=== PATIENT | male | born 1995 | race Caucasian/White ===

== ENCOUNTER 2016-12-19 17:47 | Inpatient (IN) ==
[2016-12-19 18:07] LABS: Basophils # 0.1 K/mcL (0.0-0.2); Basophils % 0.4 %; Eosinophils # 0.2 K/mcL (0.0-0.6); Eosinophils % 1.4 %; Hematocrit 46.3 % (37.5-50.1); Hemoglobin 15.6 g/dL (12.9-16.9); Immature Granulocytes % 0.4 % (0-4); Lymphocytes # 4.9 K/mcL (0.6-4.6); Lymphocytes % 35.1 %; Mean Corpuscular HGB Conc 33.7 g/dL (31.6-35.5); Mean Corpuscular Hemoglobin 29.5 pg (28.0-33.3); Mean Corpuscular Volume 87.5 fL (83.0-100.0); Mean Platelet Volume 10.6 fL (9.4-12.4); Monocytes # 0.7 K/mcL (0.0-1.3); Neutrophils # 8.1 K/mcL (1.6-8.9); Platelet Count 299 K/mcL (140-400); Red Blood Count 5.29 M/mcL (4.19-5.50); Red Cell Distribution Width 12.8 % (11.5-14.5); Segmented Neutrophils % 57.7 %
[2016-12-19 18:22] LABS: Acetaminophen < 1.0 mcg/mL (10-30); Alanine Aminotransferase 16 Units/L (0-55); Albumin/Globulin Ratio 1.2 (1.1-2.2); Alkaline Phosphatase 79 Units/L (38-126); Aspartate Amino Transferase 13 Units/L (5-34); BUN/Creatinine Ratio 10 (6-26); Bilirubin,Total 0.4 mg/dL (0.2-1.2); Blood Urea Nitrogen 10 mg/dL (8-26); Calcium 9.1 mg/dL (8.6-10.8); Carbon Dioxide 16 mEq/L (19-29); Chloride 107 mEq/L (98-109); Globulin 3.3 g/dL (2.4-3.5); Glucose 105 mg/dL (70-99); Magnesium 1.8 mg/dL (1.7-2.2); Osmolality,Calculated 285 (280-300); Phosphorous 1.2 mg/dL (2.3-4.7); Sodium 138 mEq/L (136-145); Total Protein 7.3 g/dL (6.0-8.3); eGFR For African Americans > 60 (> 60); eGFR For Non-African Americans > 60 (> 60)
[2016-12-19] MEDS ORDERED: *HR* LORazepam 2 MG/ML VIAL IVP ONE (18:28)
[2016-12-19 18:33] LABS: Bilirubin,Urine Negative (Negative); Blood,Urine Negative (Negative); Clarity,Urine Clear (Clear); Color,Urine Yellow (Yellow); Glucose,Urine (UA) Normal (Normal); Ketones,Urine Negative (Negative); Leukocyte Esterase,Urine Trace (Negative); Nitrite,Urine Negative (Negative); Protein,Urine Negative (Neg-Trace); Specific Gravity,Urine 1.026 (1.010-1.025); Urobilinogen,Urine Normal (Normal)
--- NOTE | 2016-12-19 18:33 | Emergency Department Note ---
Disposition Clinical Impression: Seizure Anaphylactic reaction Qualifiers: Encounter type: initial encounter Qualified Code(s): T78.2XXA - Anaphylactic shock, unspecified, initial encounter Bee sting Qualifiers: Encounter type: initial encounter Injury intent: accidental or unintentional Qualified Code(s): T63.441A - Toxic effect of venom of bees, accidental ( unintentional), initial encounter Disposition: Admitted As Inpatient Condition: Good Referrals: NONE,PCP [Primary Care Provider] - Forms: ED Satisfaction Letter Time of Disposition: 21:09 Allergic Reaction HPI - General Chief complaint: ED Allergic Reaction Stated complaint: Allergic Reaction / Seizure Time Seen by Provider: 12/19/16 17:58 Source: EMS, other Mode of arrival: EMS Limitations: altered mental status, other Nursing Notes Reviewed: Yes Vital Signs Reviewed: Yes - History of Present Illness HPI Narrative: Patient is a 21-year-old male with past medical history of seizures. Not currently on any seizure medications. He was initially brought in via EMS due to concern for possible anaphylaxis and possible seizure. According to EMS, when they arrived on scene, the patient's friends were on scene and stated that the patient was washing dishes and then reached for a wash cloth, screamed out an expletive and stated he was stung on his hand. He had told friends he was allergic to bees. Friends state he went over to the couch, began rocking back and forth, hyperventilating, and started having spasm in his arms. On arrival, the patient was unresponsive, red from neck down, he had tonic activity of the right upper extremity, tonic neck with head turn to the right and unable to be moved to the left. Possible seizure activity. Initial oxygen saturation was in the upper 80s/low 90s on nonrebreather mask. Patient was given 0.3 mg of epinephrine, 125 mg of Solu-Medrol, 40 mg of Pepcid, 50 mg of Benadryl, he is also given 1 mg of Ativan. After receiving these medications, patient's heart rate slowed to 100, oxygen saturation increased to 98%, blood pressure throughout the event was 120s over 80s. Physical exam does not show any other injuries, lungs are clear to auscultation, heart regular rhythm but tachycardic. Abdominal exam soft, benign. Bee sting present on right pointer finger, distal aspect on the medial side. I did not note any track calderón in bilateral ACs or between fingers. Patient would not open his eyes, would not answer some yes or no questions by nodding his head or grunting. Would not really answer any review of system questions. Would not tell us his name. Information to identify the patient was obtained by the friends. Physical Exam Physical exam does not show any other injuries, lungs are clear to auscultation , heart regular rhythm but tachycardic. Abdominal exam soft, benign. Bee sting present on right pointer finger, distal aspect on the medial side. I did not note any track calderón in bilateral ACs or between fingers. Patient would not open his eyes, would not answer some yes or no questions by nodding his head or grunting. - General Limitations: altered mental status General appearance: other - Head Head exam: atraumatic, normocephalic, normal inspection - Eye Eye exam: Present: normal appearance, PERRL, EOMI - ENT ENT exam: normal exam, normal oropharynx, mucous membranes moist - Neck Neck exam: Present: full ROM, trachea midline, other (spasm/tonic activity of neck to the right) - Chest Chest inspection: Present: normal inspection, symmetric chest wall rise - Respiratory Respiratory exam: Present: other (tachypnic, otherwise clear lung sounds) - Cardiovascular Cardiovascular exam: Present: normal rhythm, tachycardia, normal heart sounds - Abdominal Exam Abdominal exam: Present: soft, Non-Tender. Absent: tenderness, distention, guarding, rebound, rigidity - Extremities Exam Extremities exam: Present: other (right upper extremity in spasm, being held up to chest and unable to be moved) - Neurological Exam Neurological exam: Present: other (altered, not answering quesitons, not following commands ) - Psychiatric Psychiatric exam: Present: normal affect, normal mood - Skin Skin exam: Present: warm, dry, intact, other (diffuse erythema from neck down) Course Course Narrative: After the listed medications given in the history of present illness, patient is now alert and oriented. Vitals all stable and WNL. Patient is not able to answer all questions. He states that he does have a history of seizures. He is supposed to be on Depakote but has not taken this since he was a teenager. He says that his last seizure was several years ago. He also used to take Concerta for ADHD but has not taken this medication either recently. He also states that he had previous medication prescribed for bipolar disorder but does not take these medications either since late teenage years. Patient recounted the story to me. It was the same story that was given by his friends on scene. He was stung by a bee and his right pointer finger, then went into anaphylaxis. Labs show a mild leukocytosis. He has an elevated prolactin level which confirms seizure activity. Patient was given a loading dose of Dilantin. Urinalysis was negative. Urine tox was positive for benzos. However , patient was given benzos prior to arrival by EMS (2 of versed for seizure). Chest x-ray was obtained and showed mediastinal widening with right paratracheal opacity. It was suggested that a contrast enhanced CT be obtained for further evaluation. This has been ordered. After results, will admit the patient for monitoring for anaphylaxis and seizure activity. Patient will need neurology consult once admitted due to seizure hx. 21:01 CT showed: 1. No acute intrathoracic process identified. No abnormality identified to correspond to radiographic findings which are felt to reflect confluence of vascular shadows. Head CT 12/19/16 17:59 IMPRESSION: No acute intracranial abnormality. D/ / Sherman Hernandez MD / Sherman Hernandez MD Interpreting Provider: Sherman Hernandez MD Chest X-Ray 12/19/16 18:03 IMPRESSION: Mediastinal widening with right paratracheal opacity. Suggest contrast-enhanced CT for further evaluation. D/ / Sherman Hernandez MD / Sherman Hernandez MD Interpreting Provider: Sherman Hernandez MD Chest CT 12/19/16 20:04 IMPRESSION: 1. No acute intrathoracic process identified. No abnormality identified to correspond to radiographic findings which are felt to reflect confluence of vascular shadows. D/ / Renato Becerril MD / Renato Becerril MD Interpreting Provider: Renato Becerril MD Head CT 12/19/16 17:59 IMPRESSION: No acute intracranial abnormality. D/ / Sherman Hernandez MD / Sherman Hernandez MD Interpreting Provider: Sherman Hernandez MD Chest X-Ray 12/19/16 18:03 IMPRESSION: Mediastinal widening with right paratracheal opacity. Suggest contrast-enhanced CT for further evaluation. D/ / Sherman Hernandez MD / Sherman Hernandez MD Interpreting Provider: Sherman Hernandez MD Vital Signs Temperature 0 F L 12/19/16 17:52 Pulse Rate 114 12/19/16 17:52 Respiratory Rate 28 12/19/16 17:52 Blood Pressure 125/93 12/19/16 17:52 O2 Sat by Pulse Oximetry 94 12/19/16 17:52 Temperature 0 F L 12/19/16 17:52 Pulse Rate 97 12/19/16 20:05 Respiratory Rate 18 12/19/16 20:05 Blood Pressure 132/80 12/19/16 20:05 O2 Sat by Pulse Oximetry 94 12/19/16 20:05 Oxygen Delivery Oxygen Delivery Non Rebreather Mask Allergic Reaction - MDM Narrative Medical decision making narrative: Patient had anaphylaxis after a bee sting sustained to the right finger. He also had a seizure during this episode. Prolactin level ordered to confirm this. Patient has sicne stabilized after administration of epinephrine, Benadryl, Pepcid, Solu-Medrol. He has a history of seizures but has not taken his medication in several years. He is given a loading dose of Dilantin here. CT of the head was negative for any acute intracranial abnormality. CT of the chest was negative for any acute abnormality after an incidental finding was suggested on chest x-ray. We will admit for observation overnight and recommend neurology consult in the morning due to seizure, history of seizures with no recent medication. - Medical Records Medical records reviewed: Yes I reviewed the patient's medical records. - Lab Data Lab results reviewed: Yes I reviewed the patient's lab results. Result diagrams: 12/19/16 17:58 12/19/16 17:58 Lab Results 12/19/16 12/19/16 12/19/16 Range/Units 17:58 17:58 17:58 WBC 14.0 H (4.3-11.1) K/mcL RBC 5.29 (4.19-5.50) M/mcL Hgb 15.6 (12.9-16.9) g/dL Hct 46.3 (37.5-50.1) % MCV 87.5 (83.0-100.0) fL MCH 29.5 (28.0-33.3) pg MCHC 33.7 (31.6-35.5) g/dL RDW 12.8 (11.5-14.5) % Plt Count 299 (140-400) K/mcL MPV 10.6 (9.4-12.4) fL Immature Gran % 0.4 (0-4) % Seg Neutrophils % 57.7 % Lymphocytes % 35.1 % Monocytes % 5.0 % Eosinophils % 1.4 % Basophils % 0.4 % Neutrophils # 8.1 (1.6-8.9) K/mcL Lymphocytes # 4.9 H (0.6-4.6) K/mcL Monocytes # 0.7 (0.0-1.3) K/mcL Eosinophils # 0.2 (0.0-0.6) K/mcL Basophils # 0.1 (0.0-0.2) K/mcL Sodium 138 (136-145) mEq/L Potassium 3.0 L (3.5-4.5) mEq/L Chloride 107 (98-109) mEq/L Carbon Dioxide 16 L (19-29) mEq/L BUN 10 (8-26) mg/dL Creatinine 1.01 (0.72-1.25) mg/dL Est GFR ( Amer) > 60 (> 60) Est GFR (Non-Af Amer) > 60 (> 60) BUN/Creatinine Ratio 10 (6-26) Glucose 105 H (70-99) mg/dL Calculated Osmolality 285 (280-300) Calcium 9.1 (8.6-10.8) mg/dL Phosphorus 1.2 L (2.3-4.7) mg/dL Magnesium 1.8 (1.7-2.2) mg/dL Total Bilirubin 0.4 (0.2-1.2) mg/dL AST 13 (5-34) Units/L ALT 16 (0-55) Units/L Alkaline Phosphatase 79 (38-126) Units/L Serum Total Protein 7.3 (6.0-8.3) g/dL Albumin 4.0 (3.5-5.0) g/dL Globulin 3.3 (2.4-3.5) g/dL Albumin/Globulin Ratio 1.2 (1.1-2.2) Prolactin (3.46-19.40) ng/mL Urine Color (Yellow) Urine Clarity (Clear) Urine pH (5.0-8.0) pH Units Ur Specific Carlock (1.010-1.025) Urine Protein (Neg-Trace) mg/dL Urine Glucose (UA) (Normal) mg/dL Urine Ketones (Negative) mg/dL Urine Blood (Negative) Urine Nitrite (Negative) Urine Bilirubin (Negative) Urine Urobilinogen (Normal) mg/dL Ur Leukocyte Esterase (Negative) Urine Microscopic RBC (0-3) per hpf Urine Microscopic WBC (0-3) per hpf Ur Squamous Epith Cells (None-Few) per lpf Urine Bacteria (None-Few) per hpf Hyaline Casts (None-Few) per lpf Urine Opiates Screen (Dabtdn=505) ng/mL Acetaminophen < 1.0 L (10-30) mcg/mL Ur Barbiturates Screen (Soknbb=158) ng/mL Ur Phencyclidine Scrn (Cutoff=25) ng/mL Ur Amphetamines Screen (Htnaqb=6958) ng/mL U Benzodiazepines Scrn (Wzcvpq=755) ng/mL Urine Cocaine Screen (Cutoff= 300) ng/mL U Marijuana (THC) Screen (Cutoff = 50) ng/mL Ethyl Alcohol < 10 (0-10) mg/dL 12/19/16 12/19/16 12/19/16 Range/Units 17:58 18:25 18:25 WBC (4.3-11.1) K/mcL RBC (4.19-5.50) M/mcL Hgb (12.9-16.9) g/dL Hct (37.5-50.1) % MCV (83.0-100.0) fL MCH (28.0-33.3) pg MCHC (31.6-35.5) g/dL RDW (11.5-14.5) % Plt Count (140-400) K/mcL MPV (9.4-12.4) fL Immature Gran % (0-4) % Seg Neutrophils % % Lymphocytes % % Monocytes % % Eosinophils % % Basophils % % Neutrophils # (1.6-8.9) K/mcL Lymphocytes # (0.6-4.6) K/mcL Monocytes # (0.0-1.3) K/mcL Eosinophils # (0.0-0.6) K/mcL Basophils # (0.0-0.2) K/mcL Sodium (136-145) mEq/L Potassium (3.5-4.5) mEq/L Chloride (98-109) mEq/L Carbon Dioxide (19-29) mEq/L BUN (8-26) mg/dL Creatinine (0.72-1.25) mg/dL Est GFR ( Amer) (> 60) Est GFR (Non-Af Amer) (> 60) BUN/Creatinine Ratio (6-26) Glucose (70-99) mg/dL Calculated Osmolality (280-300) Calcium (8.6-10.8) mg/dL Phosphorus (2.3-4.7) mg/dL Magnesium (1.7-2.2) mg/dL Total Bilirubin (0.2-1.2) mg/dL AST (5-34) Units/L ALT (0-55) Units/L Alkaline Phosphatase (38-126) Units/L Serum Total Protein (6.0-8.3) g/dL Albumin (3.5-5.0) g/dL Globulin (2.4-3.5) g/dL Albumin/Globulin Ratio (1.1-2.2) Prolactin 53.68 H (3.46-19.40) ng/mL Urine Color Yellow (Yellow) Urine Clarity Clear (Clear) Urine pH 6.0 (5.0-8.0) pH Units Ur Specific Carlock 1.026 H (1.010-1.025) Urine Protein Negative (Neg-Trace) mg/dL Urine Glucose (UA) Normal (Normal) mg/dL Urine Ketones Negative (Negative) mg/dL Urine Blood Negative (Negative) Urine Nitrite Negative (Negative) Urine Bilirubin Negative (Negative) Urine Urobilinogen Normal (Normal) mg/dL Ur Leukocyte Esterase Trace H (Negative) Urine Microscopic RBC 0-3 (0-3) per hpf Urine Microscopic WBC 5-15 H (0-3) per hpf Ur Squamous Epith Cells Many H (None-Few) per lpf Urine Bacteria None Seen (None-Few) per hpf Hyaline Casts None Seen (None-Few) per lpf Urine Opiates Screen Negative (Uyegbi=103) ng/mL Acetaminophen (10-30) mcg/mL Ur Barbiturates Screen Negative (Sqpfot=615) ng/mL Ur Phencyclidine Scrn Negative (Cutoff=25) ng/mL Ur Amphetamines Screen Negative (Wiwvkm=9282) ng/mL U Benzodiazepines Scrn Positive H (Vmztzt=344) ng/mL Urine Cocaine Screen Negative (Cutoff= 300) ng/mL U Marijuana (THC) Screen Negative (Cutoff = 50) ng/mL Ethyl Alcohol (0-10) mg/dL - Radiology Data Radiology results reviewed: Yes I reviewed the patient's radiology results. Head CT 12/19/16 17:59 IMPRESSION: No acute intracranial abnormality. D/ / Sherman Hernandez MD / Sherman Hernandez MD Interpreting Provider: Sherman Hernandez MD Chest X-Ray 12/19/16 18:03 IMPRESSION: Mediastinal widening with right paratracheal opacity. Suggest contrast-enhanced CT for further evaluation. D/ / Sherman Hernandez MD / Sherman Hernandez MD Interpreting Provider: Sherman Hernandez MD Chest CT 12/19/16 20:04 IMPRESSION: 1. No acute intrathoracic process identified. No abnormality identified to correspond to radiographic findings which are felt to reflect confluence of vascular shadows. D/ / Renato Becerril MD / Renato Becerril MD Interpreting Provider: Renato Becerril MD - EKG Data EKG attestation: Yes I reviewed and interpreted this EKG. EKG results narrative: 12/19/2016 18:06. Sinus tachycardia. Rate 105. [place] 147. QRS 89. QTc 389. Normal axis. No acute ST elevation or depression. Critical Care Time Critical Care Time: Yes Total Critical Care Time: 60 Attestation: The high probability of a clinically significant, sudden or life threatening deterioration of the [neuro] system(s) required my full and direct attention, intervention and personal management. The aggregate critical care time was [60] minutes. This time is in addition to time spent performing reported procedures but includes the following: [x] Data Review and interpretation [x] Patient assessment and monitoring of vital signs [x] Documentation [x] Medication orders and management S.B.A.R. - S.[email or web address].Alicia Situation: Demographics, MOA Background: Presenting Complaint, Relevant PMH, Meds, & Allergies Assessment: Vital Signs, Course and respsone to treatment, Exam Concerns, Patient/Family Expectation, Pertinant Lab Results, Outstanding Labs Recommendation: Barrier(s) to disposition, Recommendation based on pending studies, treatments, or consults S.B.A.RDali Report Given to: Dr. Claudio Mora Repor Time: 21:08 Attestation Statement - Attestation Attestation: I examined this patient and my medical decision-making was reviewed with the Resident Physician. Dr. Vitale. I agree with the documented findings, disposition and treatment plan as described except to the extent set forth below. Patient is a 21-year-old male with a history of past seizures who presented to the emergency department brought by EMS unresponsive with possible anaphylaxis and seizure activity. On patient arrival he was brought on a backboard, was verbally unresponsive with head turned to the right and both arms contracted. Patient had not had any obvious tongue biting or incontinence. We are told by medics that patient was at home with friends and was stung on his right hand by a bee he was complaining of pain told his friends he was allergic to bees and upon sitting on the couch was hyperventilating and friends had called 911. On EMS arrival patient was read from the neck down was hyperventilating and had both arms contracted. Patient was awake and responsive for a short time and then in route became unresponsive and had what appeared to be seizure activity patient was administered Versed in route. Patient's Accu-Chek was within normal limits on arrival, he is placed on a monitor pulse ox 2 large bore IVs were established fluids had been running by EMS patient was placed on nonrebreather mask and given medications for an allergic reaction as well as some Ativan IV. Shortly after medication administration patient's vitals began to normalize his arms began to relax and he was breathing more comfortably. Patient began to open his eyes and would occasionally verbally respond to questions with purposeful movements of his extremities 4. Seizure precautions were instituted, labs were drawn and sent imaging was ordered and patient was loaded on Dilantin. Patient was then sent to CT scan for further neurologic imaging. At this time patient returned from CT he was awake alert and oriented 4 with a GCS of 15 on arrival, no focal neurologic deficits and answering questions appropriately and able to provide more history. Agree patient's physical exam assessment as documented. Patient's EKG showed sinus tachycardia with no acute ST-T wave changes. Patient's labs show metabolic acidosis, hypokalemia as well as hypophosphatemia. Patient also had an elevation in his prolactin. Patient's CT of the brain was unremarkable. Remainder of labs were unremarkable. Patient has returned to baseline mental status resting comfortably with stable vital signs throughout the remainder of his ED course. Patient's chest x-ray was interpreted by radiology as questionable mediastinal widening and peritracheal mass on the right. Patient was sent for CT imaging for further evaluation and CT was unremarkable for any acute change. Patient will be admitted for further evaluation of seizure activity as well as possible anaphylaxis. The case was discussed with the hospitalist who accepted the patient for admission for further evaluation and treatment. She had no further seizure activity or change in mental status throughout his ED course.
[2016-12-19 18:35] LABS: Bacteria,Urine None Seen per hpf (None-Few); Hyaline Casts,Urine None Seen per lpf (None-Few); RBC,Urine 0-3 per hpf (0-3); Squamous Epithelial Cell,Urine Many per lpf (None-Few)
[2016-12-19 18:39] LABS: Amphetamine Screen,Urine Negative ng/mL (Cutoff=1000); Barbiturate Screen,Urine Negative ng/mL (Cutoff=200); Benzodiazepines Screen,Urine Positive ng/mL (Cutoff=200); Cannabinoid Screen,Urine Negative ng/mL (Cutoff = 50); Cocaine Screen,Urine Negative ng/mL (Cutoff= 300); Opiate Screen,Urine Negative ng/mL (Cutoff=300); Phencyclidine Screen,Urine Negative ng/mL (Cutoff=25)
[2016-12-19] MEDS ORDERED: methylPREDNISolone 125 MG/2 ML VIAL IVP ONE (19:45)
[2016-12-19] MEDS ORDERED: Famotidine 20 MG/2 ML VIAL IVP ONE (19:45)
[2016-12-19] MEDS: 0.9 % Sodium Chloride 1,000 ML IVC SCH (19:52)
--- NOTE | 2016-12-19 23:10 | Internal Med History&Physical ---
<Octavio Hickey - Last Filed: 12/20/16 00:22> Date of Encounter: 12/20/16 Time of Encounter: 22:58 Assessment and Plan (1) Anaphylactic reaction Current visit: Yes Status: Resolved Secondary to bee sting. Patient was given 0.3 mg of epinephrine, 125 mg of Solu-Medrol, 40 mg of Pepcid , and 50 mg of Benadryl with resolution of sxs. Chest x-ray revealed mediastinal widening with right paratracheal opacity. Contrast enhanced CT revealed no acute intrathoracic process identified to correspond to radiographic findings which are felt to reflect confluence of vascular shadows. Continue to monitor. Qualifiers: Encounter type: initial encounter Qualified Code(s): T78.2XXA - Anaphylactic shock, unspecified, initial encounter (2) Seizure Current visit: Yes Status: Acute He has an elevated prolactin level which confirms seizure activity. Patient was given a loading dose of Dilantin. UDS was positive for benzos (patient was given Versed for seizure prior to arrival by EMS) CT brain negative Seizure precautions Neurology consulted due to seizure hx. (3) Hypokalemia Current visit: Yes Status: Acute Supplement K Continue to monitor (4) Hypophosphatemia Current visit: Yes Status: Acute Supplement phos Continue to monitor (5) Tobacco dependence Current visit: Yes Status: Acute Tobacco cessation discussed. Nicotine patch (6) DVT prophylaxis Current visit: Yes Status: Acute SCDs. Internal Medicine - H&P: HPI Chief complaint: Bee sting Admitted From: Home Plans for Post Hospital Care: Home History of present illness: Mr. Diane is a 21 year old male with a PMH of seizures, ADHD, tobacco dependence, and bee sting allergy who presented to the ED via EMS due to anaphylaxis and possible seizure. Patient's friends report he was stung by a yellow jacket on his right index finger prior to arrival while washing dishes. Friends witnessed him rocking back and forth, hyperventilating, and having spasm in his arms. When EMS arrived patient was unresponsive, red from neck down , bilateral arm contracted, and had tonic activity of the right upper extremity and neck with head turned to the right. Patient was given 0.3 mg of epinephrine , 125 mg of Solu-Medrol, 40 mg of Pepcid, 50 mg of Benadryl, Versed, and 1 mg of Ativan with resolution of sxs. Patient denied tongue biting, urine/ fecal incontinence, fever, chills, CP, abd pain, N/V/D, or edema. Of note, patient reports his last seizure was several years ago and has not been taking Depakote for 5 years due to lack of insurance. He also reports he does not have an Epi pen due to lack of insurance.. Past Med Surg Social Fam HX - Past Medical History Medical history: seizures, other (bee sting allergy) Psychiatric history: ADHD - Past Surgical History Surgical History: no surgical history - Social History Smoking Status: Current every day smoker Drug use: none Current living situation: Home - Independent - Family History Mother Hx Family Neurologic Disorders: Yes (Narcolepsy) Grandmother Hx Family Endocrine Disorder: Yes (DM) Internal Medicine - H&P: Meds 3 Allergy/AdvReac Type Severity Reaction Status Date / Time shellfish derived Allergy Hives Verified 12/19/16 23:00 All Systems PM: A 10-system review of systems was performed and is negative for pertinent findings except as documented above in the HPI. - Constitutional Constitutional: excessive sweating, no chills, no fever(s), no weight gain, no weight loss - EENT Eyes: no change in vision Nose, mouth and throat: no dysphagia, no lip swelling, no nasal congestion, no neck pain, no sore throat, no throat swelling, no tongue swelling - Cardiovascular Cardiovascular ROS IM: no chest pain, no palpitations, no syncope - Respiratory Respiratory: dyspnea, no cough, no wheezing - Gastrointestinal Gastrointestinal: no abdominal pain, no diarrhea, no nausea, no vomiting - Genitourinary Genitourinary ROS male: no dysuria, no urinary frequency, no urinary urgency - Musculoskeletal Musculoskeletal ROS IM: arthralgias (bee sting), no back pain, no numbness, no tingling - Integumentary Integumentary IM: erythema, new lesions, no rash - Neurological Neurological ROS: confusion, convulsions, no dizziness, no focal weakness, no loss of vision, no tingling, no tremor(s), no weakness - Psychiatric Psychiatric: no anxiety, no depression - Endocrine Endocrine IM: no polydipsia, no polyphagia, no polyuria - Allergic/Immunologic Allergic/Immunologic: no tongue swelling, no throat swelling, no seasonal rhinorrhea, no uticaria, no wheezing - Constitutional Vitals: Temp Pulse Resp BP Pulse Ox 98.2 F 91 16 128/84 98 12/19/16 21:21 12/19/16 21:21 12/19/16 21:21 12/19/16 21:21 12/19/16 21:21 General appearance: Present: cooperative (standing at bedside), A&O X 3, pleasant, no acute distress, answers questions appropriately - Head Head exam: Present: atraumatic, normal inspection, normocephalic - Eye Eye exam: Present: EOMI, PERRL - ENT ENT exam: Present: mucous membranes moist, normal oropharynx - Expanded ENT Exam Mouth exam: Present: normal external inspection, tongue normal. Absent: muffled voice, tongue hypertrophy Throat exam: Present: normal inspection. Absent: post pharyngeal edema, post pharyngeal erythema, tonsillomegaly - Respiratory Respiratory exam: Present: CTAB. Absent: respiratory distress, wheezes - Cardiovascular Cardiovascular exam: Present: RRR, +S1, +S2 - GI/Abdominal GI/Abdominal exam: Present: normal bowel sounds. Absent: firm, soft, tenderness - Extremities Exam Extremities exam: Present: tenderness, warm (erythema from bee sting on right pointer finger, distal aspect on the medial side) - Neurological Exam Neurological exam: Present: alert, CN II-XII intact, oriented X3. Absent: altered, no focal deficits, strengths equal and symetr throughout, facial droop , speech deficit - Psychiatric Psychiatric exam: Present: normal affect, normal mood. Absent: anxious, depressed - Skin Skin exam: Present: erythema (erythema from bee sting on right pointer finger, distal aspect on the medial side), warm Internal Med - H&P Results - Labs CBC & Chem 7: 12/19/16 17:58 12/19/16 17:58 Labs: Short CBC 12/19/16 Range/Units 17:58 WBC 14.0 H (4.3-11.1) K/mcL Hgb 15.6 (12.9-16.9) g/dL Hct 46.3 (37.5-50.1) % Plt Count 299 (140-400) K/mcL Neutrophils # 8.1 (1.6-8.9) K/mcL BMP 12/19/16 17:58 Sodium 138 Potassium 3.0 L Chloride 107 Carbon Dioxide 16 L BUN 10 Creatinine 1.01 Glucose 105 H Calcium 9.1 Liver Function 12/19/16 Range/Units 17:58 Total Bilirubin 0.4 (0.2-1.2) mg/dL AST 13 (5-34) Units/L ALT 16 (0-55) Units/L Alkaline Phosphatase 79 (38-126) Units/L Albumin 4.0 (3.5-5.0) g/dL Urine 12/19/16 Range/Units 18:25 Urine Color Yellow (Yellow) Urine Clarity Clear (Clear) Urine pH 6.0 (5.0-8.0) pH Units Ur Specific [place] 1.026 H (1.010-1.025) Urine Protein Negative (Neg-Trace) mg/dL Urine Glucose (UA) Normal (Normal) mg/dL - EKG Data -: EKG Interpreted by Myself EKG shows normal: sinus rhythm Rate: tachycardia (Sinus tachycardia. Rate 105. NE 147. QRS 89. QTc 389. Normal axis. No acute ST elevation or depression.) - Impressions ITS Impressions Head CT 12/19/16 17:59 IMPRESSION: No acute intracranial abnormality. D/ / Sherman Hernandez MD / Sherman Hernandez MD Interpreting Provider: Sherman Hernandez MD Chest X-Ray 12/19/16 18:03 IMPRESSION: Mediastinal widening with right paratracheal opacity. Suggest contrast-enhanced CT for further evaluation. D/ / Sherman Hernandez MD / Sherman Hernandez MD Interpreting Provider: Sherman Hernandez MD Chest CT 12/19/16 20:04 IMPRESSION: 1. No acute intrathoracic process identified. No abnormality identified to correspond to radiographic findings which are felt to reflect confluence of vascular shadows. D/ / Renato Becerril MD / Renato Becerril MD Interpreting Provider: Renato Becerril MD <[email or web address] riley - Last Filed: 12/20/16 03:56> Date of Encounter: 12/20/16 Internal Medicine - H&P: HPI History of present illness: Mr. Diane is a 21 year old male All Systems PM: A 10-system review of systems was performed and is negative for pertinent findings except as documented above in the HPI. - Constitutional Vitals: Temp Pulse Resp BP Pulse Ox 98.2 F 88 16 130/82 95 12/20/16 00:15 12/20/16 00:15 12/20/16 00:15 12/20/16 00:15 12/20/16 00:15 Internal Med - H&P Results - Labs CBC & Chem 7: 12/20/16 01:36 12/20/16 01:36 Labs: Short CBC 12/20/16 Range/Units 01:36 WBC 10.4 (4.3-11.1) K/mcL Hgb 15.3 (12.9-16.9) g/dL Hct 45.5 (37.5-50.1) % Plt Count 250 (140-400) K/mcL Neutrophils # 9.4 H (1.6-8.9) K/mcL BMP 12/20/16 01:36 Sodium 137 Potassium 4.1 D Chloride 106 Carbon Dioxide 19 BUN 9 Creatinine 1.02 Glucose 202 H Calcium 9.5 Liver Function 12/20/16 Range/Units 01:36 Total Bilirubin 0.7 (0.2-1.2) mg/dL AST 12 (5-34) Units/L ALT 17 (0-55) Units/L Alkaline Phosphatase 81 (38-126) Units/L Albumin 3.9 (3.5-5.0) g/dL - Attending Attestation I examined this patient and my medical decision-making was reviewed with the Resident Physician. I agree with the documented findings, disposition and treatment plan as described except to the extent set forth below. Patient is a 21-year-old male with past medical history of seizure disorder and ADHD. He presents to the ED for a seizure and anaphylactic reaction. Patient states he was stung by a bee. Apparently patient started hyperventilating and also had a seizure at the time. Patient was given epinephrine, Solu-Medrol, Pepcid and Benadryl. His symptoms then resolved. At present patient is awake and alert. Not in any distress. His lungs are clear to auscultation. Patient states he has only wants to eat. He says he feels better. No other acute complaints. Patient is being admitted for anaphylactic reaction and seizures. Heart rate 88, blood pressure 130/82, O2 sat 94% on room air. Heart S1-S2 positive. Lungs bilateral good entry no wheezing no crackle no stridor. Abdomen soft nontender. Extremities all pulses strong and regular no edema. HEENT atraumatic, tongue swelling no lip swelling.
[2016-12-19] MEDS ORDERED: Ibuprofen 400 MG TABLET PO PRN (23:20)
[2016-12-19] MEDS ORDERED: Naloxone 0.4 MG/ML INJ IVP PRN (23:20)
[2016-12-20] MEDS: 0.9 % Sodium Chloride 1,000 ML IVC SCH ×4 (01:43→22:27)
[2016-12-20 01:44] LABS: Basophils % 0.2 %; Hematocrit 45.5 % (37.5-50.1); Hemoglobin 15.3 g/dL (12.9-16.9); Immature Granulocytes % 0.3 % (0-4); Immature Platelets 6.7 % (1.1-6.1); Lymphocytes % 9.6 %; Mean Corpuscular HGB Conc 33.6 g/dL (31.6-35.5); Mean Corpuscular Hemoglobin 29.6 pg (28.0-33.3); Mean Platelet Volume 10.8 fL (9.4-12.4); Monocytes % 0.2 %; Neutrophils # 9.4 K/mcL (1.6-8.9); Platelet Count 250 K/mcL (140-400); Red Blood Count 5.17 M/mcL (4.19-5.50); Red Cell Distribution Width 12.9 % (11.5-14.5); Segmented Neutrophils % 89.7 %
[2016-12-20 01:57] LABS: Alanine Aminotransferase 17 Units/L (0-55); Albumin 3.9 g/dL (3.5-5.0); Albumin/Globulin Ratio 1.1 (1.1-2.2); Alkaline Phosphatase 81 Units/L (38-126); Aspartate Amino Transferase 12 Units/L (5-34); BUN/Creatinine Ratio 9 (6-26); Bilirubin,Total 0.7 mg/dL (0.2-1.2); Blood Urea Nitrogen 9 mg/dL (8-26); Calcium 9.5 mg/dL (8.6-10.8); Carbon Dioxide 19 mEq/L (19-29); Chloride 106 mEq/L (98-109); Globulin 3.4 g/dL (2.4-3.5); Glucose 202 mg/dL (70-99); Magnesium 1.8 mg/dL (1.7-2.2); Osmolality,Calculated 288 (280-300); Sodium 137 mEq/L (136-145); Total Protein 7.3 g/dL (6.0-8.3); eGFR For African Americans > 60 (> 60); eGFR For Non-African Americans > 60 (> 60)
[2016-12-20 01:58] LABS: Phosphorous 3.6 mg/dL (2.3-4.7); Potassium 4.1 mEq/L (3.5-4.5)
[2016-12-20] MEDS: Famotidine 20 MG/2 ML VIAL IVP SCH ×2 (06:22→17:10)
[2016-12-20] MEDS ORDERED: Nicotine 14 MG PATCH.TD24 TD SCH (09:00)
[2016-12-20 10:20] LABS: Magnesium 1.9 mg/dL (1.7-2.2); Phosphorous 3.1 mg/dL (2.3-4.7)
--- NOTE | 2016-12-20 11:47 | Internal Med Progress Note ---
<MariaelenaGuero gupta - Last Filed: 12/20/16 11:45> Date of Encounter: 12/20/16 Time of Encounter: 11:45 - Assessment and plan (1) Anaphylactic reaction Current Visit: Yes Status: Resolved Assessment and plan: Secondary to bee sting. Patient was given epinephrine, Solu-Medrol, famotidine , Benadryl. Patient is symptom-free at this time. Patient is aware of his allergic triggers and does seem to avoid them. We will send the patient home with an EpiPen. Qualifiers: Encounter type: initial encounter Qualified Code(s): T78.2XXA - Anaphylactic shock, unspecified, initial encounter (2) Seizure Current Visit: Yes Status: Acute Assessment and plan: Patient has a personal history of seizures but states he has not had one in several years. Possibly triggered by the stress of the anaphylactic reaction discussed above. No seizure activity since presentation. Patient was given a loading dose of Dilantin. Patient has not been on maintenance medications due to financial difficulties. creative services manager will be consulted. Neurology is consulted. (3) Tobacco dependence Current Visit: Yes Status: Acute Assessment and plan: Patient complains of cigarette cravings. Will increase nicotine patch to 21 mg. (4) Hypokalemia Current Visit: Yes Status: Acute Assessment and plan: Resolved. continue to monitor (5) Hypophosphatemia Current Visit: Yes Status: Acute Assessment and plan: Resolved. (6) DVT prophylaxis Current Visit: Yes Status: Acute Assessment and plan: SCDs - Subjective Interval history: Patient seen and examined at bedside. Patient states that he feels pretty good today. He has no specific complaints. He denies seizure activity since admission. He denies shortness of breath, itching, coughing. - Constitutional Vitals: Temp Pulse Resp BP Pulse Ox 98.1 F 78 18 122/73 96 12/20/16 10:56 12/20/16 10:56 12/20/16 10:56 12/20/16 10:56 12/20/16 10:56 General appearance: Present: cooperative (standing at bedside), A&O X 3, pleasant, no acute distress, answers questions appropriately - Respiratory Respiratory exam: Present: CTAB. Absent: rales, rhonchi, wheezes - Cardiovascular Cardiovascular exam: Present: RRR. Absent: gallop, rubs, systolic murmur - GI/Abdominal GI/Abdominal exam: Present: normal bowel sounds, soft. Absent: distended, tenderness - Extremities Exam Extremities exam: Present: warm. Absent: pedal edema, tenderness - Neurological Exam Neurological exam: Present: alert, CN II-XII intact, oriented X3, no focal deficits, strengths equal and symetr throughout - Skin Skin exam: Present: dry, intact, warm. Absent: diaphoretic, erythema, rash, urticaria Internal Medicine: Result - Labs CBC & Chem 7: 12/20/16 01:36 12/20/16 01:36 Labs: Short CBC 12/20/16 Range/Units 01:36 WBC 10.4 (4.3-11.1) K/mcL Hgb 15.3 (12.9-16.9) g/dL Hct 45.5 (37.5-50.1) % Plt Count 250 (140-400) K/mcL Neutrophils # 9.4 H (1.6-8.9) K/mcL BMP 12/20/16 01:36 Sodium 137 Potassium 4.1 D Chloride 106 Carbon Dioxide 19 BUN 9 Creatinine 1.02 Glucose 202 H Calcium 9.5 Liver Function 12/20/16 Range/Units 01:36 Total Bilirubin 0.7 (0.2-1.2) mg/dL AST 12 (5-34) Units/L ALT 17 (0-55) Units/L Alkaline Phosphatase 81 (38-126) Units/L Albumin 3.9 (3.5-5.0) g/dL Consult Discharge Plan - Plan Referrals: NONE,PCP [Primary Care Provider] - <Yan Crisostomo P - Last Filed: 12/20/16 13:25> Date of Encounter: 12/20/16 - Constitutional Vitals: Temp Pulse Resp BP Pulse Ox 98.1 F 78 18 122/73 96 12/20/16 10:56 12/20/16 10:56 12/20/16 10:56 12/20/16 10:56 12/20/16 10:56 Internal Medicine: Result - Labs CBC & Chem 7: 12/20/16 01:36 12/20/16 01:36 Labs: Short CBC 12/20/16 Range/Units 01:36 WBC 10.4 (4.3-11.1) K/mcL Hgb 15.3 (12.9-16.9) g/dL Hct 45.5 (37.5-50.1) % Plt Count 250 (140-400) K/mcL Neutrophils # 9.4 H (1.6-8.9) K/mcL BMP 12/20/16 01:36 Sodium 137 Potassium 4.1 D Chloride 106 Carbon Dioxide 19 BUN 9 Creatinine 1.02 Glucose 202 H Calcium 9.5 Liver Function 12/20/16 Range/Units 01:36 Total Bilirubin 0.7 (0.2-1.2) mg/dL AST 12 (5-34) Units/L ALT 17 (0-55) Units/L Alkaline Phosphatase 81 (38-126) Units/L Albumin 3.9 (3.5-5.0) g/dL - Attending Attestation I examined this patient and my medical decision-making was reviewed with the Resident Physician. I agree with the documented findings, disposition and treatment plan as described except to the extent set forth below. Neurology recommendations appreciated
--- NOTE | 2016-12-20 12:37 | Neurology - Consult Note ---
Date of Encounter: 12/20/16 Time of Encounter: 08:40 Assessment and Plan (1) Seizure Current Visit: Yes Status: Acute This patient who apparently had a history of seizures and had a seizure a few years ago but was not on any medication due to lack of insurance now seem to have a generalized tonic seizure likely exacerbated by a bee sting reaction. He has been started on Depakote suggested that he should continue on it he may take 500 mg twice a day. His imaging studies of the head was negative for any acute bleed infarct or any other structural abnormality. His prolactin level was also elevated at the time of admission Related to the Seizure. At This Time I Think Depakote Would Be a Better Choice Especially May Help Stabilize His Mood and at the Same Time May Help His Seizure. (2) Anaphylactic reaction Current Visit: Yes Status: Resolved History of Present Illness HPI: Mr. Diane is a 21 year old male with PMH of seizures, as a teenager, ADHD, bee sting allergy who presented to the ED via EMS due to anaphylaxis and possible seizure. Patient's friends report he was stung by a yellow jacket on his right index finger Friends witnessed him rocking back and forth, hyperventilating, and having spasm in his arms. When EMS arrived patient was unresponsive, red from neck down, bilateral arm contracted, and had tonic activity of the right upper extremity and neck with head turned to the right. Patient was given 0.3 mg of epinephrine, 125 mg of Solu-Medrol, 40 mg of Pepcid , 50 mg of Benadryl, Versed, and 1 mg of Ativan with resolution of sxs. Patient denied tongue biting, urine/ fecal incontinence, fever, chills, CP, abd pain, N/ V/D, or edema. he mentioned that he was very tried afterwards now back to normal per patient his last seizure was several years ago and has not been taking Depakote for few years due to lack of insurance. He also does not have an Epi pen due to lack of insurance.. Past Med Surg Social Fam HX - Past Medical History Medical history: seizures, other Psychiatric history: ADHD - Past Surgical History Surgical History: no surgical history - Social History Smoking Status: Current every day smoker Packs per day: 0.5 Alcohol use: occasionally Drug use: marijuana - Family History Mother Living Status: Cause of : Car Accident Hx Family Neurologic Disorders: Yes (Narcolepsy) Grandmother Living Status: Cause of : Lupus Hx Family Endocrine Disorder: Yes (DM) Father Living Status: Cause of : Overdose Medications and Allergies 3 Allergy/AdvReac Type Severity Reaction Status Date / Time shellfish derived Allergy Hives Verified 12/19/16 23:00 All Systems: A 10-system review of systems was performed and is negative for pertinent findings except as documented above in the HPI. Physical Examination - Vital Signs Vital Signs: Initial Vital Signs Temp Pulse Resp BP Pulse Ox 0 F L 114 28 125/93 94 12/19/16 17:52 12/19/16 17:52 12/19/16 17:52 12/19/16 17:52 12/19/16 17:52 - Neurologic Detailed motor examination: full strength in all major muscle groups Motor examination - right side: 5/5: deltoids, biceps, triceps, wrist flexion, wrist extension, mud mixer, hip flexors, tibialis Anterior, quadriceps, toe extension (EHL), plantarflexion Motor examination - left side: 5/5: deltoids, biceps, triceps, wrist flexion, wrist extension, hip flexors, mud mixer, quadriceps, tibialis Anterior, toe extension (EHL), plantarflexion Mental Status Examination: awake, alert, oriented to person, oriented to place, oriented to time, follows commands appropriately, answers questions appropriately, no agnosia, no aphasia, no aproxia Cranial nerve examination: PERRL, EOMI, visual barry intact, corneal reflexes brisk symmetrically, sensory to face intact, mastication intact, no facial asymmetry is present, no dysarthria, hearing is intact symmetrically, soft palate elevates bilaterally upon phonation, gag reflex intact, flexes SCM and trapezius muscles symmetrically with full power, tongue protrudes midline, no atrophy or facial fasiculations present Cerebellar examination: no dysmetria, performs finger to nose and heel to beck symmetrically without ataxia, no gait ataxia, no truncal ataxia, no difficulty with rapid alternating movements Results - Laboratory Findings CBC and BMP: 12/20/16 01:36 12/20/16 01:36 Abnormal lab findings: Abnormal lab results Neutrophils # 9.4 K/mcL (1.6-8.9) H 12/20/16 01:36 Immature Plt Fraction 6.7 % (1.1-6.1) H 12/20/16 01:36 Glucose 202 mg/dL (70-99) H 12/20/16 01:36 POC Glucose 154 (58-89) H 12/20/16 00:22 Prolactin 53.68 ng/mL (3.46-19.40) H 12/19/16 17:58 Ur Specific [place] 1.026 (1.010-1.025) H 12/19/16 18:25 Ur Leukocyte Esterase Trace (Negative) H 12/19/16 18:25 Urine Microscopic WBC 5-15 per hpf (0-3) H 12/19/16 18:25 Ur Squamous Epith Cells Many per lpf (None-Few) H 12/19/16 18:25 Acetaminophen < 1.0 mcg/mL (10-30) L 12/19/16 17:58 U Benzodiazepines Scrn Positive ng/mL (Eyssrd=100) H 12/19/16 18:25 Consult Discharge Plan - Plan Referrals: NONE,PCP [Primary Care Provider] -
[2016-12-20] MEDS: Divalproex (12 HR) 500 MG TABLET PO SCH (22:27)
[2016-12-21 04:50] LABS: Basophils # 0.1 K/mcL (0.0-0.2); Basophils % 0.5 %; Eosinophils # 0.1 K/mcL (0.0-0.6); Hematocrit 46.8 % (37.5-50.1); Hemoglobin 15.3 g/dL (12.9-16.9); Immature Granulocytes % 0.2 % (0-4); Lymphocytes # 5.8 K/mcL (0.6-4.6); Mean Corpuscular HGB Conc 32.7 g/dL (31.6-35.5); Mean Corpuscular Hemoglobin 29.2 pg (28.0-33.3); Mean Corpuscular Volume 89.3 fL (83.0-100.0); Mean Platelet Volume 10.7 fL (9.4-12.4); Monocytes # 0.7 K/mcL (0.0-1.3); Monocytes % 5.2 %; Neutrophils # 6.3 K/mcL (1.6-8.9); Platelet Count 261 K/mcL (140-400); Red Blood Count 5.24 M/mcL (4.19-5.50); Segmented Neutrophils % 48.1 %
[2016-12-21 05:15] LABS: BUN/Creatinine Ratio 18 (6-26); Blood Urea Nitrogen 16 mg/dL (8-26); Calcium 9.2 mg/dL (8.6-10.8); Carbon Dioxide 22 mEq/L (19-29); Chloride 109 mEq/L (98-109); Glucose 92 mg/dL (70-99); Osmolality,Calculated 285 (280-300); Potassium 4.3 mEq/L (3.5-4.5); Sodium 137 mEq/L (136-145); eGFR For African Americans > 60 (> 60); eGFR For Non-African Americans > 60 (> 60)
[2016-12-21] MEDS: Famotidine 20 MG/2 ML VIAL IVP SCH (05:38)
[2016-12-21] MEDS: 0.9 % Sodium Chloride 1,000 ML IVC SCH (09:13)
[2016-12-21] MEDS: Divalproex (12 HR) 500 MG TABLET PO SCH (09:13)
--- NOTE | 2016-12-21 09:47 | Neurology Progress Note ---
Date of Encounter: 12/21/16 Time of Encounter: 07:35 Assessment and Plan (1) Seizure Current Visit: Yes Status: Acute This patient who apparently had a history of seizures and had a seizure a few years ago but was not on any medication due to lack of insurance now seem to have a generalized tonic seizure likely exacerbated by a bee sting reaction. He has been started on Depakote suggested that he should continue on it he may take 500 mg twice a day. His imaging studies of the head was negative for any acute bleed infarct or any other structural abnormality. His prolactin level was also elevated at the time of admission Related to the Seizure. At This Time I Think Depakote Would Be a Better Choice Especially May Help Stabilize His Mood and at the Same Time May Help His Seizure. The patient remained stable and could be discharged today with Depakote 500 mg twice a day (2) Anaphylactic reaction Current Visit: Yes Status: Resolved Subjective Interval history: Wrist MRI and EEG today doing better Objective - Constitutional Vitals: Temp Pulse Resp BP Pulse Ox 98.2 F 81 16 131/78 98 12/21/16 06:37 12/21/16 06:37 12/21/16 06:37 12/21/16 06:37 12/21/16 06:37 - Neurological Exam Motor Examination: Present: full strength in all major muscle groups Motor examination - left side: 5/5: deltoids, biceps, triceps, wrist flexion, wrist extension, hip flexors, exchange architect, quadriceps, tibialis Anterior, toe extension (EHL), plantarflexion Mental Status Examination: Present: awake, alert, oriented to person, oriented to place, oriented to time, follows commands appropriately, answers questions appropriately, no agnosia, no aphasia, no aproxia Cranial nerve examination: Present: PERRL, EOMI, visual barry intact, corneal reflexes brisk symmetrically, sensory to face intact, mastication intact, no facial asymmetry is present, no dysarthria, hearing is intact symmetrically, soft palate elevates bilaterally upon phonation, gag reflex intact, flexes SCM and trapezius muscles symmetrically with full power, tongue protrudes midline, no atrophy or facial fasiculations present Cerebellar examination: Present: no dysmetria, performs finger to nose and heel to beck symmetrically without ataxia, no gait ataxia, no truncal ataxia, no difficulty with rapid alternating movements Results - Laboratory Findings CBC and BMP: 12/21/16 04:33 12/21/16 04:33 Abnormal lab findings: Abnormal lab results WBC 13.0 K/mcL (4.3-11.1) H 12/21/16 04:33 Lymphocytes # 5.8 K/mcL (0.6-4.6) H 12/21/16 04:33 Immature Plt Fraction 6.7 % (1.1-6.1) H 12/20/16 01:36 POC Glucose 154 (58-89) H 12/20/16 00:22 Prolactin 53.68 ng/mL (3.46-19.40) H 12/19/16 17:58 Ur Specific [place] 1.026 (1.010-1.025) H 12/19/16 18:25 Ur Leukocyte Esterase Trace (Negative) H 12/19/16 18:25 Urine Microscopic WBC 5-15 per hpf (0-3) H 12/19/16 18:25 Ur Squamous Epith Cells Many per lpf (None-Few) H 12/19/16 18:25 Acetaminophen < 1.0 mcg/mL (10-30) L 12/19/16 17:58 U Benzodiazepines Scrn Positive ng/mL (Lwogov=790) H 12/19/16 18:25 Consult Discharge Plan - Plan Referrals: NONE,PCP [Primary Care Provider] -
--- NOTE | 2016-12-21 09:49 | Discharge Summary ---
<Charlie Garcia - Last Filed: 12/21/16 14:48> Date of Encounter: 12/21/16 Time of Encounter: 08:45 - Discharge Diagnosis (1) Seizure Priority: Primary Status: Acute (2) Anaphylactic reaction Priority: Secondary Status: Resolved Qualifiers: Encounter type: initial encounter Qualified Code(s): T78.2XXA - Anaphylactic shock, unspecified, initial encounter (3) Hypokalemia Priority: Secondary Status: Acute (4) Hypophosphatemia Priority: Secondary Status: Acute (5) Tobacco dependence Priority: Secondary Status: Acute - Discharge Medications Prescriptions: Divalproex (12 HR) [Depakote (12 HR)] 500 mg PO BID #60 tab Home Medications: Divalproex (12 HR) [Depakote (12 HR)] 500 mg PO BID #60 tab 12/21/16 [Rx] Allergies/Adverse Reactions: 3 Allergy/AdvReac Type Severity Reaction Status Date / Time shellfish derived Allergy Hives Verified 12/19/16 23:00 Procedures/tests Complete & Pending: CT head: "FINDINGS: BRAIN/VENTRICLES: No acute intracranial hemorrhage, mass effect or midline shift. No abnormal extra-axial fluid collection. The liao-white differentiation is maintained without evidence of an acute infarct. No hydrocephalus. ORBITS: The visualized portion of the orbits demonstrate no acute abnormality. SINUSES: The visualized paranasal sinuses and mastoid air cells demonstrate no acute abnormality. SOFT TISSUES/SKULL: No acute abnormality of the visualized skull or soft tissues. CT/CT head/brain wo con IMPRESSION: No acute intracranial abnormality." CXR: " FINDINGS: Cardiomediastinal silhouette and pulmonary vasculature are normal. No airspace disease, pleural effusion, or pneumothorax. Mediastinum is widened with right paratracheal opacity. XR/XR chest 1V portable IMPRESSION: Mediastinal widening with right paratracheal opacity. Suggest contrast-enhanced CT for further evaluation." CT Chest: "FINDINGS: Mediastinum: Soft tissue density noted within the anterior mediastinum compatible with residual thymic tissue. The heart is normal in size without a pericardial effusion. No evidence for coronary artery atherosclerosis. Aorta, arch vessels, and main pulmonary artery are normal in course and caliber.No pathologically enlarged mediastinal and hilar nodes appreciated. Lungs/pleura: The lungs are clear bilaterally. No evidence of focal consolidation. No pneumothorax is identified. No noncalcified pulmonary nodules or masses are evident. No pleural effusion. Upper Abdomen: The visualized upper abdominal contents are unremarkable. Soft Tissues/Bones: No significant bony or soft tissue abnormality is demonstrated. CT/CT chest w con IMPRESSION: 1. No acute intrathoracic process identified. No abnormality identified to correspond to radiographic findings which are felt to reflect confluence of vascular shadows." Date of admission: 12/19/16 23:17 Primary care physician: PCP NONE Consults: 12/19/16 23:18 Consult to Neurology [CONS] Routine Consulting Provider: [facility] Reason for Consult: seizure Call Completed: No 12/21/16 07:37 Consult to Belt Operator [CONS] Routine Reason for SW Consult: Patient concerned about home medication costs. Discharging clinician: Charlie Garcia Anticipated date of discharge: 12/21/16 - Patient Status Disposition: Home, Self-Care Condition: Good Functional capacity at discharge: independent ambulation Overall status at discharge: patient is progressing back to baseline - Discharge Instructions Follow Up With: Luis Perez DO [Resident] - 01/13/17 2:00 pm (please follow up schedule to get establish for an appt.) Anel Jones MD [Partnered Physician] - 01/04/17 10:15 am (Please follow up as schedule..) Additional Instructions: Please follow up with your primary care provider within 1 week of discharge. Please follow up with Neurology as scheduled. Please take your Depakote as prescribed. Please return to the hospital if you experience any new or worsening symptoms. - Diet and Activity Activity: resume usual activities as tolerated Diet: advance to your usual diet Interval History: Patient reports feeling fine. No seizure since initial incident. Social work confirming insurance to allow him to get his depakote and epi pen. Hospital course: Mr. Diane is a 21 year old male c PMHx of seizures, ADHD, tobacco dependence, and bee sting allergy reported to the hospital s/p seizure secondary to anaphylaxis secondary to bee sting. Patient had a witnessed seizure. Patient formerly on dpeakote, but has not been taking for the last 5 years due to lack of insurance. CXR showed baldev mediastinal widenining, but T chest showed no acute process. CT scan of brain was negative. Patient was restarted on depakote and disharged with that and an epi pen rx. - Time Spent with Patient Total time spent providing and/or coordinating discharge services: 40 minutes Greater than 30 minutes - Constitutional Vitals: Temp Pulse Resp BP Pulse Ox 98.2 F 81 16 131/78 98 12/21/16 06:37 12/21/16 06:37 12/21/16 06:37 12/21/16 06:37 12/21/16 06:37 General appearance: Present: cooperative, A&O X 3, pleasant, no acute distress, answers questions appropriately - Head Head exam: Present: atraumatic, normocephalic - Eye Eye exam: Present: PERRL, conjuntiva pink, sclera anicteric Pupils: Present: PERRL - Neck Neck exam general surgery: Present: supple, trachea midline - Respiratory Respiratory exam: Present: CTAB. Absent: accessory muscle use, rales, rhonchi, wheezes - Cardiovascular Cardiovascular exam: Present: RRR, +S1, +S2. Absent: diastolic murmur, gallop, rubs, systolic murmur - GI/Abdominal GI/Abdominal exam: Present: normal bowel sounds, soft, no peritoneal signs. Absent: distended, tenderness - Extremities Exam Extremities exam: Present: warm. Absent: calf tenderness, cyanotic, pedal edema - Neurological Exam Neurological exam: Present: alert, CN II-XII intact, oriented X3, no focal deficits. Absent: facial droop, speech deficit - Skin Skin exam: Present: dry, intact <Andressa,Yan P - Last Filed: 12/21/16 18:59> Date of Encounter: 12/21/16 Date of admission: 12/19/16 23:17 Primary care physician: PCP NONE Consults: 12/19/16 23:18 Consult to Neurology [CONS] Routine Consulting Provider: [facility] Reason for Consult: seizure Call Completed: No 12/21/16 07:37 Consult to Belt Operator [CONS] Routine Reason for SW Consult: Patient concerned about home medication costs. Hospital course: Mr. Diane is a 21 year old male - Time Spent with Patient Total time spent providing and/or coordinating discharge services: - Constitutional Vitals: Temp Pulse Resp BP Pulse Ox 98.0 F 75 18 117/79 97 12/21/16 10:36 12/21/16 10:36 12/21/16 10:36 12/21/16 10:36 12/21/16 10:36 - Attending Attestation I examined this patient and my medical decision-making was reviewed with the Resident Physician. I agree with the documented findings, disposition and treatment plan as described except to the extent set forth below.
[2016-12-21 10:42] VITALS: BP 117/79
[2016-12-21] MEDS ORDERED: FLUARIX QUAD 2017-18 36MOS UP/PF 0.5 ML SYRINGE IM ONE (11:26)
[2016-12-21] MEDS ORDERED: Nicotine 21 MG PATCH.TD24 TD SCH (11:49)
[2016-12-21] MEDS ORDERED: Famotidine 20 MG TABLET PO SCH (16:30)
== END 2016-12-21 12:51 | disposition home or self-care (01) | DRG 918 ==
LOC: EMEROO 17:47 → 2ANU 17:47
PROVIDERS: ADMIT Family Medicine; ATTEND Internal Medicine